=== PATIENT | male | born 1985 | race Caucasian/White ===

== ENCOUNTER 2025-04-15 06:47 | Outpatient (RCR) | payer BC, SELFPAY | END 2025-04-15 23:59 | disposition home or self-care (01) | LOC: ROT 06:47 | PROVIDERS: ATTENDING PHYSICIAN Orthopaedic Surgery; FAMILY PHYSICIAN Internal Medicine | DX: S66.9 Injury of unspecified muscle, fascia and tendon at wrist and hand level (principal); Z73.6 Limitation of activities due to disability; M25.531 Pain in right wrist; M62.81 Muscle weakness (generalized) | CPT/HCPCS: 97018; 97166; 97535 ==

== ENCOUNTER 2025-05-07 09:28 | Outpatient (RCR) | payer BC, SELFPAY | END 2025-05-07 23:59 | disposition home or self-care (01) | LOC: ROT 09:28 | PROVIDERS: ATTENDING PHYSICIAN Orthopaedic Surgery; FAMILY PHYSICIAN Internal Medicine | DX: S66.9 Injury of unspecified muscle, fascia and tendon at wrist and hand level (principal); Z73.6 Limitation of activities due to disability; M25.531 Pain in right wrist; M62.81 Muscle weakness (generalized) | CPT/HCPCS: 97010; 97018; 97110; 97140 ==

== ENCOUNTER → 2025-05-09 08:00 | Outpatient (REF) | payer BC, SELFPAY | LOC: EMG 08:00 | PROVIDERS: ATTENDING PHYSICIAN Physician Assistant; FAMILY PHYSICIAN Internal Medicine | DX: M25.532 Pain in left wrist (principal); M25.531 Pain in right wrist | CPT/HCPCS: 95886; 95911 ==